=== PATIENT | male | born 1990 | race Caucasian/White ===

== ENCOUNTER 2017-10-24 06:01 | Day surgery (SDC) | payer OTHER ==
[2017-10-24] MEDS ORDERED: ceFAZolin 2 GM/50 ML 2 GM/50 ML BAG IV ONE (06:35)
[2017-10-24] MEDS ORDERED: LACTATED RINGERS 1,000 ML IV ONE (06:37)
[2017-10-24] MEDS ORDERED: PROPOFOL 200 MG/20 ML VIAL IVP ONE (08:00)
[2017-10-24] MEDS ORDERED: GLYCOPYRROLATE 1 MG/5 ML VIAL IVP ONE (08:00)
[2017-10-24] MEDS ORDERED: LIDOCAINE-MPF 2% 5 ML VIAL IM ONE (08:00)
[2017-10-24] MEDS ORDERED: DEXAMETHASONE 4 MG/ML VIAL IVP ONE (08:00)
[2017-10-24] MEDS ORDERED: MIDAZOLAM 2 MG/2 ML VIAL IVP ONE (08:00)
[2017-10-24] MEDS ORDERED: fentaNYL 100 MCG/2 ML VIAL IVP ONE (08:00)
[2017-10-24] MEDS ORDERED: KETOROLAC 30 MG/ML VIAL IVP ONE (08:00)
[2017-10-24] MEDS ORDERED: ACETAMINOPHEN 1,000 MG/100 ML 100 ML IV ONE (08:00)
[2017-10-24] MEDS ORDERED: ONDANSETRON 4 MG/2 ML VIAL IVP ONE (08:00)
[2017-10-24] MEDS ORDERED: BUPIVACAINE 0.25% PF 30 ML VIAL SUBQ ONE ×2 (08:06)
[2017-10-24] MEDS ORDERED: MEPERIDINE 50 MG/ML SYRINGE ONE (09:01)
[2017-10-24] MEDS ORDERED: ONDANSETRON 4 MG/2 ML VIAL ONE (09:17)
[2017-10-24 09:42] VITALS: BP 133/92
--- NOTE | 2017-10-26 08:19 | OPERATIVE REPORT ---
DATE OF SURGERY: 10/24/2017 00:00:00 PREOPERATIVE DIAGNOSIS: 1. Right knee medial meniscus tear. 2. Right knee osteoarthritis. POSTOPERATIVE DIAGNOSIS: 1. Right knee medial meniscus tear. 2. Right knee osteoarthritis. NAME OF PROCEDURE: 1. Right knee medial meniscus debridement. 2. Right knee arthroscopy with synovectomy. SURGEON: Antwon Felton MD ANESTHESIA: General. INDICATIONS: This is a 27-year-old male who has had 1 year of medial-sided knee pain. He has failed a course of physical therapy and activity modifications. He currently has sharp pain with specific movements. It is episodic in nature. He does not relate any locking or specific mechanical symptoms other than this sharp twisting pain. He also has a dull aching sensation. I discussed with him that his imaging showed a meniscus tear as well as medial knee joint arthritis and that this surgery would not be designed to treat any symptoms associated with his arthritis, but would specifically address the meniscus tear. Risks, benefits and alternatives were discussed. Risks include pain, bleeding, infection, damage to nearby structures, lack of symptom relief, need for further surgery. He signed a consent form. ANTIBIOTICS: Weight based Ancef. ESTIMATED BLOOD LOSS: None. FLUIDS: 500 mL. TOURNIQUET TIME: 38 minutes at 250 mmHg. DISPOSITION: Stable to PACU. DVT PROPHYLAXIS 1. Early frequent ambulation. 2. SCD while in the operating room. SPECIMENS: None. TRIM SETTER HELPER SURGEON: Eloisa Forrester MD PROCEDURE IN DETAIL: The patient was met in the preoperative holding area the day of procedure. The operative extremity was signed, consent was verified. He desired to proceed. He was brought to the operative room and surrendered to anesthesia. Once general anesthesia had been obtained, he was placed in a supine position. All bony prominences were well-padded. Examination under anesthesia was performed. Findings are as follows. GUA: Range of motion 0-135 degrees. Stable to varus and valgus stressing at 0 and 30 degrees, stable Sammy, normal pivot shift, negative posterior sag and posterior drawer, normal dial 30 and 90 degrees. Following the examination under anesthesia, he was prepped and draped in the standard sterile fashion. A surgical time-out was held. We confirmed the patient 's identity, procedure, ALLERGIES, antibiotics, images, all were in agreement, we proceeded. Standard diagnostic arthroscopy was performed through anterolateral and anteromedial portal sites. The anteromedial portal was created under direct visualization utilizing a spinal needle. Findings of the diagnostic arthroscopy are as follows. Patellofemoral joint: No loose bodies. Patellar cartilage okay. Trochlear cartilage grade 1 softening consistent with age and activity. Medial and lateral gutters were without loose body. ACL and PCL were intact. Lateral liana joint showed meniscal root to be intact. There was no tear within the meniscus. Lateral tibial plateau cartilage was okay. Lateral femoral condyle cartilage was okay. The medial liana joint showed a complex tear of the posterior horn and body of the medial meniscus surfacing both superiorly and inferiorly. A large section of the body and posterior horn were unhealthy tissue with a degenerative horizontal tear and the inferior leaflet was debrided back to a stable, smooth base. Underlying the meniscal tear there was grade 3/4 outer bridge cartilage degeneration measuring 15 mm x 15 [address] the way to the periphery of the tibial plateau. The medial femoral condyle did not show any focal cartilage lesions; however, there was osteophyte formation over the most medial edge as seen when looking at the gutter. The posterior medial meniscus root was intact. Following completion of the diagnostic arthroscopy, a combination of straight and curved biters was brought in to debride all unhealthy portions of the meniscus. Sucker shaver was utilized to complete the debridement and smooth out the edges. The debridement took a significant portion of the internal structure of the body as it transitioned to the posterior horn. The posterior horn was largely intact, however. Once satisfied with this, final images were taken. All fluid was taken out of the joint. The incisions were closed with buried Monocryl and Steri-Strips were applied, 20 mL of 0.25% Marcaine without epinephrine was instilled around the incision sites as well as into the joint. A sterile dressing was applied. The patient was awakened and transferred to recovery room. POSTOPERATIVE PLAN 1. Same day surgery discharge. 2. Weightbearing as tolerated, right knee. 3. Dressing to be removed in 5 days. He can shower at that time. 4. Follow up in 2 weeks. Start physical therapy. 5. No impact activities for 6 weeks. JOB #: [id number] EXT JOB #:[id number] [facility]
== END 2017-10-24 06:02 | disposition home or self-care (01) ==
LOC: SDS 06:01
PROVIDERS: ATTEND Orthopaedic Surgery
PROC: 0SBC4ZZ Excision of Right Knee Joint, Percutaneous Endoscopic Approach (ICD-10-PCS; principal; 2017-10-24 07:30)
DX: S83.231A Complex tear of medial meniscus, current injury, right knee, initial encounter (principal); M17.11 Unilateral primary osteoarthritis, right knee
CPT/HCPCS: 29881; J0131; J0690; J7120